=== PATIENT | female | born 1965 | race African-American/Black ===

== ENCOUNTER 2016-04-14 17:55 | Emergency (ER) | payer OTHER ==
[~2016-04-14] VITALS: Ht 160 cm; Wt 93.6 kg
[~2016-04-14 17:55] MED LIST: VALIUM2 MG PO
[2016-04-14] MEDS ORDERED: MOBIC7.5 MG PO (21:45)
[2016-04-14 22:38] VITALS: BP 115/74
== END 2016-04-14 22:39 | disposition home or self-care (01) ==
LOC: EME 17:55
DX: M51.34 Other intervertebral disc degeneration, thoracic region (principal); S30.0XXD Contusion of lower back and pelvis, subsequent encounter; V49.40XD Driver injured in collision with unspecified motor vehicles in traffic accident, subsequent encounter; G56.01 Carpal tunnel syndrome, right upper limb
CPT/HCPCS: 72070; 99281; 99284

== ENCOUNTER 2017-08-09 00:13 | Emergency (ER) | payer OTHER ==
[~2017-08-09] VITALS: Ht 160 cm; Wt 96.3 kg
[~2017-08-09 00:13] MED LIST changes: +MOBIC7.5 MG PO
[2017-08-09 00:36] VITALS: BP 108/66
== END 2017-08-09 04:38 | disposition left against medical advice (07) ==
LOC: EME 00:13
DX: M25.511 Pain in right shoulder (principal); Z98.890 Other specified postprocedural states; G47.00 Insomnia, unspecified; Z53.21 Procedure and treatment not carried out due to patient leaving prior to being seen by health care provider

== ENCOUNTER 2017-08-21 16:31 | Emergency (ER) | payer SELFPAY ==
[~2017-08-21] VITALS: Ht 160 cm; Wt 94.8 kg
[2017-08-21] MEDS ORDERED: FLEXERIL10 MG PO (18:24)
[2017-08-21] MEDS ORDERED: INDOCIN50 MG PO (18:24)
[2017-08-21 18:35] VITALS: BP 128/66
== END 2017-08-21 18:36 | disposition home or self-care (01) ==
LOC: EME 16:31
DX: S16.1XXA Strain of muscle, fascia and tendon at neck level, initial encounter (principal); S46.911A Strain of unspecified muscle, fascia and tendon at shoulder and upper arm level, right arm, initial encounter; X58.XXXA Exposure to other specified factors, initial encounter
CPT/HCPCS: 73030; 99281; 99284; J1100